=== PATIENT | female | born 2000 | race Caucasian/White ===

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

== ENCOUNTER → 2021-07-04 | Outpatient (CLI) | payer OTHER ==
--- NOTE | 2021-07-04 10:29 | US ---
EXAMINATION TYPE: Transabdominal DATE OF EXAM: 07/04/2021 10:14 AM COMPARISON: NONE CLINICAL HISTORY: Z36.89 Confirm dates. EXAM PERFORMED: Transabdominal (TA) EXAM MEASUREMENTS: GESTATIONAL AGE / DATING Physician Established: (11 weeks/5 days) EDC: 01/18/2022 Dates by LMP: LMP unknown Dates by First Scan: No previous this is first scan Dates by Current Scan for: (12 weeks/1 days) EDC: 01/15/2022 MATERNAL ANATOMY Uterus: 10.8 x 6.3 x 9.3cm Right Ovary: 3.0 x 1.5 x 2.0cm Left Ovary: 3.2 x 1.1 x 1.3cm Post CDS / Adnexa: wnl Presence of free fluid: no Presence of corpus luteal cyst: not seen Presence of subchorionic bleed: no GESTATION / SURVEY CRL: 5.4cm (12 weeks/1 days) Yolk Sac (normal less than 6mm): not seen Heart Rate: 165 bpm Rhythm: Normal IUP: Viable IUP IMPRESSION: Single intrauterine gestation estimated at 12 weeks 1 day gestation based on crown-rump length. Cardi ac activity measures 165 bpm.
== END | disposition home or self-care (01) ==
LOC: RADUSWWP 09:47
PROVIDERS: ATTEND Obstetrics & Gynecology
DX: Z36.89 Encounter for other specified antenatal screening (principal)
CPT/HCPCS: 76801

== ENCOUNTER 2022-01-15 16:23 | Outpatient (CLI) | payer OTHER ==
[2022-01-15 16:47] VITALS: BP 117/61; PULSE 103; RESP 16; TEMP 97
--- NOTE | 2022-01-17 07:36 | P.MSEPDOC ---
Presenting Problems - Arrival Data Date of Arrival on Unit: 01/15/22 Time of Arrival on Unit: 16:23 Mode of Transport: Ambulatory - Complaint OB-Reason for Admission/Chief Complaint: Rule Out SROM Comment: 01/15 4909 Medical History - Information : 1 Para: 0 Term: 0 : 0 Abortions: Spontaneous or Elective: 0 Number of Living Children: 0 - Gestational Age Gestational Age by CHEN (wks/days): 39 Weeks and 4 Days Review of Systems - Review of Systems Constitutional: No problems Breast: No problems ENT: No problems Cardiovascular: No problems Respiratory: No problems Gastrointestinal: No problems Genitourinary: No problems Musculoskeletal: No problems Neurological: No problems Skin: No problems Vital Signs - Temperature Temperature: 97 F Temperature Source: Temporal Artery Scan - Pulse Right Pulse Rate: 103 Pulse Assessment Method: Automatic Cuff - Respirations Respiratory Rate: 16 Oxygen Delivery Method: Room Air O2 Sat by Pulse Oximetry: 98 - Blood Pressure Right Arm Blood Pressure: 117/61 Blood Pressure Mean: 79 Blood Pressure Source: Automatic Cuff Medical Screen Scoring - Assessment - Baby A Baseline FHR: 125 Heart Rate - NICHD Category: Category I (Normal) NST: Reactive Physician Notification - Physician Notified Physician Notified Date: 01/15/22 Physician Notified Time: 16:52 Physician: Asha Flores Order Received: Yes (discharge to home) Maternal Triage Index - Maternal Triage Index Presenting for scheduled procedure w/no complaint: No - Stat/Priority 1 Stat Priority 1: No - Urgent/Priority 2 Urgent Priority 2: No - Prompt/Priority 3 Prompt Priority 3: No - Non-Urgent/Priority 4 Non-Urgent Priority 4: Yes Criteria Met for Priority 4: 39 4/7 rule out SROM Disposition - Disposition OB Disposition: Triage, Discharge to home, Written follow up instructions reviewed Discharge Date: 01/15/22 Discharge Time: 16:52 I agree with the RN Medical Screening Exam: Yes Case reviewed; plan agreed upon as documented in EMR&OBIX.: Yes Diagnosis: FALSE LABOR AT OR AFTER 37 COMPLETED WEEKS OF GESTATION
== END 2022-01-15 16:53 | disposition home or self-care (01) ==
LOC: FBPOP 16:23
PROVIDERS: ATTEND Obstetrics & Gynecology
DX: O47.1 False labor at or after 37 completed weeks of gestation (principal); Z3A.39 39 weeks gestation of pregnancy
CPT/HCPCS: 59025; 84112; G0463; 99213

== ENCOUNTER 2022-01-16 22:22 | Outpatient (CLI) | payer OTHER ==
[2022-01-16 22:33] VITALS: BP 128/73; PULSE 104; RESP 16; TEMP 98
--- NOTE | 2022-01-20 13:14 | P.MSEPDOC ---
Presenting Problems - Arrival Data Date of Arrival on Unit: 01/17/22 Time of Arrival on Unit: 22:22 Mode of Transport: Ambulatory - Complaint OB-Reason for Admission/Chief Complaint: Possible Onset of Labor Comment: Pt presents to triage with c/o contx that started around 0500, are around 5-7 minutes apart and rating pain 9 out of 10 Medical History - Information : 2 Para: 1 Term: 1 : 0 Abortions: Spontaneous or Elective: 0 Number of Living Children: 1 - Gestational Age Gestational Age by CHEN (wks/days): 39 Weeks and 6 Days Review of Systems - Review of Systems Constitutional: No problems Breast: No problems ENT: No problems Cardiovascular: No problems Respiratory: No problems Gastrointestinal: No problems Genitourinary: No problems Musculoskeletal: No problems Neurological: No problems Skin: No problems Vital Signs - Temperature Temperature: 98.0 F Temperature Source: Temporal Artery Scan - Pulse Right Brachial Pulse Rate: 104 Pulse Assessment Method: Pulse Oximetry - Respirations Respiratory Rate: 16 Oxygen Delivery Method: Room Air O2 Sat by Pulse Oximetry: 98 - Blood Pressure Right Arm Blood Pressure: 128/73 Blood Pressure Mean: 91 Blood Pressure Source: Automatic Cuff Medical Screen Scoring - Cervical Exam Dilation (cm): 1.5 Effacement (%): 60 Station: -2 Membranes: Intact - Uterine Contractions Intensity: Mild Resting: Soft to palpation - Assessment - Baby A Baseline FHR: 130 Heart Rate - NICHD Category: Category I (Normal) NST: Reactive Physician Notification - Physician Notified Physician Notified Date: 01/17/22 Physician Notified Time: 22:46 Physician: Gabriela Robbins New Order Received: Yes - Notification Comment Comment: At 2246, RN spoke with Dr. Robbins regarding triage pt c/o contx that started around 0500 that pt stated were around every 5 to 7 minutes apart and pain score of 9 out of 10. Reported on maternal vital signs, yonathan 1 FHT and reactive NST, irregular contx pattern. Also discussed that pt is scheduled for repeat c section on sunday but does want to attempt a . Per Dr. Itzel RN to recheck cervix in one hour and monitor contx pattern. At 2345, RN spoke with Dr. Robbins regarding cervical exam that remains unchanged from one hour prior. Per Dr. Itzel RN to discharge pt home with labor instructions and comfort measures. Maternal Triage Index - Maternal Triage Index Presenting for scheduled procedure w/no complaint: No - Stat/Priority 1 Stat Priority 1: No - Urgent/Priority 2 Urgent Priority 2: No - Prompt/Priority 3 Prompt Priority 3: No - Non-Urgent/Priority 4 Non-Urgent Priority 4: Yes Criteria Met for Priority 4: Pt presents to triage with c/o contx that started around 0500, are around 5-7 minutes apart and rating pain 9 out of 10 Disposition - Disposition OB Disposition: Discharge to home, Written follow up instructions reviewed Discharge Date: 01/17/22 Discharge Time: 23:50 I agree with the RN Medical Screening Exam: Yes Case reviewed; plan agreed upon as documented in EMR&OBIX.: Yes Diagnosis: FALSE LABOR AT OR AFTER 37 COMPLETED WEEKS OF GESTATION
== END 2022-01-16 23:50 | disposition home or self-care (01) ==
LOC: FBPOP 22:22
PROVIDERS: ATTEND Obstetrics & Gynecology
DX: O47.1 False labor at or after 37 completed weeks of gestation (principal); Z3A.37 37 weeks gestation of pregnancy
CPT/HCPCS: 59025; G0463; 99213

== ENCOUNTER 2022-01-17 16:52 | Inpatient (IN) | payer OTHER ==
[2022-01-17] MEDS ORDERED: OXYTOCIN 10 UNIT/ML 1 ML VIAL IM PRN (17:51)
[2022-01-17] MEDS ORDERED: TERBUTALINE 1 MG/ML VIAL SQ PRN (17:51)
[2022-01-17] MEDS ORDERED: CARBOPROST TROMETHAMINE 250 MCG/ML 1 ML AMP IM PRN (17:51)
[2022-01-17] MEDS ORDERED: METHYLERGONOVINE 0.2 MG/ML 1 ML AMP IM PRN (17:51)
[2022-01-17] MEDS ORDERED: LIDOCAINE 0.5% (PF) 5 MG/ML (50 ML SDV) SQ PRN (17:51)
[2022-01-17] MEDS: LACTATED RINGERS 1,000 ML IV SCH ×2 (18:00→19:37)
[2022-01-17 18:25] LABS: Basophils % (A) 0 %; Eosinophils # (A) 0.2 k/uL (0-0.7); Eosinophils % (A) 2 %; HCT 39.6 % (34.0-46.0); HGB 13.1 gm/dL (11.4-16.0); Lymphocytes # (A) 1.6 k/uL (1.0-4.8); Lymphocytes % (A) 12 %; MCH 31.4 pg (25.0-35.0); MCV 95.1 fL (80.0-100.0); Mean Platelet Volume 9.2; Monocytes # (A) 0.6 k/uL (0-1.0); Monocytes % (A) 5 %; Neutrophils # (A) 10.6 k/uL (1.3-7.7); Neutrophils % (A) 80 %; Platelet Count 285 k/uL (150-450); RBC 4.16 m/uL (3.80-5.40); RDW 12.4 % (11.5-15.5); WBC 13.2 k/uL (3.8-10.6)
[2022-01-17] MEDS ORDERED: diphenhydrAMINE 50 MG/ML 1 ML VIAL IVP PRN (18:49)
[2022-01-17] MEDS: BUTORPHANOL 1 MG/ML 1 ML VIAL IV PRN (21:58)
[2022-01-18] MEDS: BUTORPHANOL 1 MG/ML 1 ML VIAL IV PRN (02:35)
[2022-01-18] MEDS ORDERED: fentaNYL (PF) 50 MCG/ML 5 ML AMP ONE (05:04)
[2022-01-18] MEDS ORDERED: SODIUM CHLORIDE 0.9% 100 ML BAG ONE (05:04)
[2022-01-18] MEDS ORDERED: ROPIVACAINE 5MG/ML 20ML VIAL ONE (05:04)
--- NOTE | 2022-01-18 05:19 | P.HPOB ---
History of Present Illness H&P Date: 01/18/22 Chief Complaint: Labor 22 year old presents in labor. Her cervix changed from 1cm to 3cm dilated 80%effaced and =2 station. She is nikko every 2-5 minutes. heart tones 135 with moderate variability and reactive. Review this she had a primary low transverse for macrosomia. The plan was for repeat C- section unless she went into labor and that she would . She has discussed this plan with Dr. Robbins and now myself. Review of Systems All systems: negative Constitutional: Denies chills, Denies fever Eyes: denies blurred vision, denies pain Ears, nose, mouth and throat: Denies headache, Denies sore throat Cardiovascular: Denies chest pain, Denies shortness of breath Respiratory: Denies cough Gastrointestinal: Denies abdominal pain, Denies diarrhea, Denies nausea, Denies vomiting Genitourinary: Denies dysuria, Denies hematuria Musculoskeletal: Denies myalgias Integumentary: Denies pruritus, Denies rash Neurological: Denies numbness, Denies weakness Psychiatric: Denies anxiety, Denies depression Endocrine: Denies fatigue, Denies weight change Past Medical History Past Medical History: No Reported History History of Any Multi-Drug Resistant Organisms: MRSA Date of last positivie culture/infection: 2014 MDRO Source:: hand Past Surgical History: No Surgical Hx Reported Past Anesthesia/Blood Transfusion Reactions: No Reported Reaction Past Psychological History: No Psychological Hx Reported Smoking Status: Never smoker Past Alcohol Use History: None Reported Past Drug Use History: None Reported - Past Family History Mother Family Medical History: No Reported History Medications and Allergies Home Medications Medication Instructions Recorded Confirmed Type Vit No.179/Iron/Folic 1 tab PO DAILY 01/16/22 01/17/22 History [ Tablet] Allergies Allergy/AdvReac Type Severity Reaction Status Date / Time acetaminophen [From [place]] Allergy Swelling Verified 01/17/22 17:14 hydrocodone [From [place]] Allergy Swelling Verified 01/17/22 17:14 Exam Osteopathic Statement: *. No significant issues noted on an osteopathic structural exam other than those noted in the History and Physical/Consult. Vital Signs Temp Pulse Resp BP 01/17/22 18:30 97.2 F L 95 16 121/69 Intake and Output 0901/17/22 01/18/22 14:59 22:59 06:59 Other: # Voids 2 Weight 81.647 kg Heart: Regular rate and rhythm Lungs: Clear to auscultation bilaterally Abdomen: Soft, nontender Extremities: Negative Homans sign Results Result Diagrams: 01/17/22 18:15 Abnormal Lab Results - Last 24 Hours (Table) 01/17/22 Range/Units 18:15 WBC 13.2 H (3.8-10.6) k/uL Neutrophils # 10.6 H (1.3-7.7) k/uL Assessment and Plan (1) Normal labor Current Visit: Yes Status: Acute Code(s): O80 - ENCOUNTER FOR FULL-TERM UNCOMPLICATED DELIVERY; Z37.9 - OUTCOME OF DELIVERY, UNSPECIFIED SNOMED Code(s): 50884818 (2) Previous section Current Visit: Yes Status: Acute Code(s): Z98.891 - HISTORY OF UTERINE SCAR FROM PREVIOUS SURGERY SNOMED Code(s): 908255187 Plan: 1. Admit to family place 2. Expectant management 3. Close monitoring with anticipation of normal vaginal delivery
--- NOTE | 2022-01-18 05:48 | P.MSEPDOC ---
Presenting Problems - Arrival Data Date of Arrival on Unit: 01/17/22 Time of Arrival on Unit: 17:30 Mode of Transport: Wheelchair - Complaint OB-Reason for Admission/Chief Complaint: Possible Onset of Labor Medical History - Information : 2 Para: 1 Term: 2 : 0 Abortions: Spontaneous or Elective: 0 Number of Living Children: 1 - Gestational Age Gestational Age by CHEN (wks/days): 39 Weeks and 6 Days - History Complications: Prior Review of Systems - Review of Systems Constitutional: No problems Breast: No problems ENT: No problems Cardiovascular: No problems Respiratory: No problems Gastrointestinal: No problems Genitourinary: No problems Musculoskeletal: No problems Neurological: No problems Skin: No problems Vital Signs - Temperature Temperature: 97.2 F Temperature Source: Temporal Artery Scan - Pulse Right Sitting Pulse Rate: 95 Pulse Assessment Method: Automatic Cuff - Respirations Respiratory Rate: 16 Oxygen Delivery Method: Room Air - Blood Pressure Right Arm Blood Pressure: 121/69 Blood Pressure Mean: 86 Blood Pressure Source: Automatic Cuff Medical Screen Scoring - Cervical Exam Dilation (cm): 3 Effacement (%): 80 Station: -2 Membranes: Intact - Uterine Contractions Frequency From (mins): 4 Frequency To (mins): 6 Duration From (seconds): 60 Duration To (seconds): 70 Intensity: Moderate Resting: Soft to palpation - Assessment - Baby A Baseline FHR: 125 Heart Rate - NICHD Category: Category I (Normal) NST: Reactive Physician Notification - Physician Notified Physician Notified Date: 01/17/22 Physician Notified Time: 17:46 Physician: Asha Flores New Order Received: Yes Maternal Triage Index - Urgent/Priority 2 Urgent Priority 2: Yes Provider Notified: Asha Flores Provider Notified Time: 17:46 Criteria Met for Priority 2: reactive nst, contractions 4-6 minutes, vag exam 3cm. previous section, requests to Disposition - Disposition OB Disposition: Admit, LDRP Suite I agree with the RN Medical Screening Exam: Yes Case reviewed; plan agreed upon as documented in EMR&OBIX.: Yes Diagnosis: ENCOUNTER FOR FULL-TERM UNCOMPLICATED DELIVERY
[2022-01-18] MEDS ORDERED: diphenhydrAMINE 25 MG CAP PO PRN (10:20)
[2022-01-18] MEDS ORDERED: BENZOCAINE/MENTHOL SPRAY 1 GM/SPRAY AEROSOL TOPICAL PRN (10:20)
[2022-01-18] MEDS ORDERED: ZOLPIDEM 5 MG TAB PO PRN (10:20)
[2022-01-18] MEDS ORDERED: LANOLIN CREAM 5 GM TUBE TOPICAL PRN (10:20)
[2022-01-18] MEDS ORDERED: SIMETHICONE 80 MG CHEWABLE PO PRN (10:20)
[2022-01-18] MEDS ORDERED: diphenhydrAMINE 50 MG CAP PO PRN (10:20)
[2022-01-18] MEDS ORDERED: OXYTOCIN 30 UNITS/500 ML NS 30 UNIT in SALINE 1 500ML.BAG IV SCH (10:30)
[2022-01-18] MEDS: IBUPROFEN 600 MG TAB PO PRN ×2 (12:15→20:10)
[2022-01-18] MEDS: LACTATED RINGERS 1,000 ML IV SCH (12:24)
--- NOTE | 2022-01-18 13:31 | P.PROBDLV ---
Vaginal Delivery Note - . Vaginal Delivery Note: The patient progressed to complete dilation after artificial rupture of membranes. Please see history of physical for details of patient's admission. Briefly this is a 22-year-old female 2 para 1 who presented in active labor. She had artificial rupture membranes with clear fluid noted at approximate 6 cm. She did receive epidural anesthesia. Once reaching complete, she pushed for approximately 50 minutes. Infant's head came to a crown. With one further push, the 's head delivered across the perineum followed by the anterior shoulder. Nose and mouth were bulb suctioned at the perineum. With one remaining push, the remainder the easily delivered and was placed on mother's abdomen. It was clamped and cut. Infant was taken to warmer for evaluation. A viable female was noted with scores of 9 at 1 minute and 9 at 5 minutes and weight of 8 lbs. 0 oz. Placenta delivered shortly thereafter, intact, with a three-vessel cord. Uterus contracted initially fairly well after oxytocin was given and uterine massage was carried out. Inspection of the perineum revealed a right periurethral laceration and a small first-degree perineal laceration. These areas were anesthetized with 1% lidocaine and then sutured with 3-0 Vicryl suture in a running locked fashion. A gloved hand was placed within the endometrial cavity and uterine scar appears intact and blood clots were expressed. Uterus did firm up fairly well. Estimated blood loss is approximately 200 mL's. Both mother and are in stable condition. This was a successful vaginal after section.
[2022-01-18] MEDS: ACETAMINOPHEN TAB 325 MG TAB PO PRN (15:26)
[2022-01-18] MEDS ORDERED: Rhogam IMMUNE GLOBULIN 1,500 UNIT/1 ML IM ONE (16:03)
[2022-01-18] MEDS: SENNOSIDES-DOCUSATE SODIUM 1 EACH TAB PO SCH (20:10)
[2022-01-19] MEDS: ACETAMINOPHEN TAB 325 MG TAB PO PRN (00:42)
[2022-01-19] MEDS: IBUPROFEN 600 MG TAB PO PRN (06:56)
[2022-01-19 07:25] LABS: Basophils % (A) 0 %; Eosinophils # (A) 0.3 k/uL (0-0.7); Eosinophils % (A) 2 %; HCT 35.5 % (34.0-46.0); HGB 11.6 gm/dL (11.4-16.0); Lymphocytes # (A) 2.4 k/uL (1.0-4.8); Lymphocytes % (A) 18 %; MCH 31.6 pg (25.0-35.0); MCHC 32.8 g/dL (31.0-37.0); MCV 96.5 fL (80.0-100.0); Mean Platelet Volume 9.5; Monocytes # (A) 0.8 k/uL (0-1.0); Monocytes % (A) 6 %; Neutrophils # (A) 9.9 k/uL (1.3-7.7); Neutrophils % (A) 72 %; Platelet Count 234 k/uL (150-450); RBC 3.68 m/uL (3.80-5.40); RDW 12.4 % (11.5-15.5); WBC 13.7 k/uL (3.8-10.6)
[2022-01-19] MEDS: SENNOSIDES-DOCUSATE SODIUM 1 EACH TAB PO SCH (07:30)
[2022-01-19 07:59] VITALS: BP 104/67; PULSE 83; RESP 16; TEMP 97.6
--- NOTE | 2022-01-19 08:42 | P.DS ---
Providers Date of admission: 01/17/22 17:59 Expected date of discharge: 01/19/22 Attending physician: Asha Flores Primary care physician: Asha Flores [facility] Course: This is a 22-year-old female 2 para 1 at 40-0/7 weeks who presented in active labor. She had a successful vaginal after section on 01/18/2022 and delivered a viable female infant with scores of 9 at 1 minute and 9 at 5 minutes and weight of 8 pounds. Her course has been uncomplicated. Her lochia is minimal. She is breast-feeding. Pain is fairly well controlled. Vital signs are stable. Abdomen is soft with fundus firm and nontender. Extremities show negative Homans. Impression is status post vaginal delivery after section day #1. Plan is to discharge home today. Routine instructions are given. She will be given a prescription for a breast pump and ibuprofen. She is advised to call the office if she has any further questions or concerns prior to her appointment. She is advised follow-up in the office in 6 weeks for check. Procedures: Vaginal after section on 01/18/2022 Patient Condition at Discharge: Stable Plan - Discharge Summary New Discharge Prescriptions: New Ibuprofen [Motrin] 600 mg PO Q6HR PRN #60 tab PRN Reason: Mild Pain (Scale 1 To 3) Continue Vit No.179/Iron/Folic [ Tablet] 1 tab PO DAILY Discharge Medication List Vit No.179/Iron/Folic [ Tablet] 1 tab PO DAILY 01/16/22 [History] Ibuprofen [Motrin] 600 mg PO Q6HR PRN #60 tab 01/19/22 [Rx] Follow up Appointment(s)/Referral(s): Gabriela Robbins DO [Doctor of Osteopathic Medicine] - 6 Weeks Activity/Diet/Wound Care/Special Instructions: Instructions 1. Do not begin any exercise program for 3 weeks. 2. Do not resume sexual relations for 3 weeks or longer if uncomfortable. 3. You may take tub baths or showers at any time. 4. You may use tampons if desired after 3 weeks. 5. Keep the area of episiotomy (stitches) clean and dry. 6. If you are not nursing, wear a good fitting, supportive bra during the day and limit fluid intake for at least 1 week to prevent breast engorgement. 7. Call the office, [phone], within the next week to make appointment for your 6 week checkup if it has not already been made. 8. Report any of the following occurrences to the doctor promptly: a. Heavy, excessive bleeding b. Chills, fever c. Burning or frequency of urination d. Pain or redness and breasts if nursing e. Increasing pain or swelling in episiotomy (stitches). In addition to the above instructions, the following additional should be followed: 1. No heavy lifting or straining (exercising) until after 6 week checkup. 2. Keep abdominal incision clean and dry: You may wear a dressing if more comfortable. 3. Make office appointment for 10 days after going home or as instructed by her doctor. Discharge Disposition: HOME SELF-CARE
== END 2022-01-19 11:00 | disposition home or self-care (01) | DRG 768 ==
LOC: FBPOP 16:52 → 4FBP 17:59
PROVIDERS: ADMIT Obstetrics & Gynecology; ATTEND Obstetrics & Gynecology
PROC: 0TQDXZZ Repair Urethra, External Approach (ICD-10-PCS; principal; 2022-01-18)
PROC: 10E0XZZ Delivery of Products of Conception, External Approach (ICD-10-PCS; 2022-01-18)
PROC: 10907ZC Drainage of Amniotic Fluid, Therapeutic from Products of Conception, Via Natural or Artificial Opening (ICD-10-PCS; 2022-01-18)
PROC: 0HQ9XZZ Repair Perineum Skin, External Approach (ICD-10-PCS; 2022-01-18)
DX: O34.211 Maternal care for low transverse scar from previous cesarean delivery (principal); Z37.0 Single live birth; O70.0 First degree perineal laceration during delivery; O71.82 Other specified trauma to perineum and vulva; Z3A.40 40 weeks gestation of pregnancy; Z86.14 Personal history of Methicillin resistant Staphylococcus aureus infection; Z88.6 Allergy status to analgesic agent; Z88.5 Allergy status to narcotic agent
CPT/HCPCS: 59025; 85025; 85461; 86850; 86900; 86901; 99213